=== PATIENT | female | born 1985 | race Caucasian/White ===

== ENCOUNTER 2019-04-14 07:50 | Observation (INO) | payer OTHER ==
[~2019-04-14] VITALS: Ht 157.5 cm; Wt 74.6 kg
[~2019-04-14 07:50] MED LIST: ACET1TAB12 PO; DSS100 PO; FERR325C PO; IBUP-2070 PO; PREN1TAB26 PO
[2019-04-14] MEDS ORDERED: ESCI10TA PO (08:33)
[2019-04-14 08:59] VITALS: BP 113/81
== END 2019-04-14 08:50 | disposition home or self-care (01) ==
LOC: 4S 07:50
PROVIDERS: ADMIT Obstetrics & Gynecology; ATTEND Obstetrics & Gynecology
DX: O62.9 Abnormality of forces of labor, unspecified (principal); O09.523 Supervision of elderly multigravida, third trimester; Z3A.37 37 weeks gestation of pregnancy
CPT/HCPCS: 81002; G0378

== ENCOUNTER 2019-04-14 10:09 | Inpatient (IN) | payer OTHER ==
[~2019-04-14] VITALS: Ht 154.9 cm; Wt 75.7 kg
[~2019-04-14 10:09] MED LIST changes: -ACET1TAB12 PO; -DSS100 PO; +ESCI10TA PO; -FERR325C PO; -IBUP-2070 PO
[2019-04-27] MEDS ORDERED: ALBU8HFA (04:18)
[2019-04-27 04:36] VITALS: BP 126/82
[2019-04-27] MEDS ORDERED: OXYTOCIN 30 UNITS/LACT RINGERS 500 ML IV ONE ×2 (05:56→15:21)
[2019-04-27] MEDS ORDERED: RINGERS SOLUTION,LACTATED 1,000 ML IV PRN (05:56)
[2019-04-27] MEDS ORDERED: OXYTOCIN 30 UNITS/LACT RINGERS 500 ML IV PRN (05:56)
[2019-04-27] MEDS ORDERED: FentaNYL CITRATE-PF 100 MCG/2 ML VIAL IVP PRN (06:00)
[2019-04-27] MEDS ORDERED: METOCLOPRAMIDE HCL 5 MG/ML 2 ML VIAL IVP PRN (06:00)
[2019-04-27] MEDS ORDERED: CITRIC ACID/SODIUM CITRATE 30 ML SOLUTION UDCUP PO PRN (06:00)
[2019-04-27] MEDS ORDERED: METH5POW14 PUFF (06:01)
[2019-04-27] MEDS ORDERED: SALMH IH (06:12)
[2019-04-27 06:21] LABS: BASOPHILS % (AUTO) 0.2 % (0.0-2.0); EOSINOPHILS % (AUTO) 1.7 % (1.0-6.0); HEMATOCRIT 34.3 % (36-46); HEMOGLOBIN 11.5 g/dL (12.0-16.0); LYMPHOCYTES # (AUTO) 1.4 K/uL (1.0-4.8); LYMPHOCYTES % (AUTO) 13.7 % (22.0-44.0); MEAN CORPUSCULAR HEMOGLOBIN 25.7 pg (26.0-34.0); MEAN CORPUSCULAR HGB CONC 33.5 G/dL (31.0-37.0); MEAN CORPUSCULAR VOLUME 77 fL (80-100); MONOCYTES # (AUTO) 0.7 K/uL (0.1-1.0); MONOCYTES % (AUTO) 6.4 % (2.0-9.0); NEUTROPHILS # (AUTO) 8.2 K/uL (1.8-7.7); PLATELET COUNT (AUTO)-OB 200 K/uL (150-450); RED BLOOD CELL COUNT(AUTO) 4.46 MIL/uL (4.00-5.20)
[2019-04-27] MEDS ORDERED: ROPIVACAINE HCL/PF 0.2% 100 ML ED ONE (07:17)
[2019-04-27] MEDS ORDERED: LIDOCAINE/PF 2% 5 ML VIAL ONE (07:17)
[2019-04-27] MEDS: RINGERS SOLUTION,LACTATED 1,000 ML IV SCH ×5 (07:46→13:54)
[2019-04-27] MEDS ORDERED: OXYGEN THERAPY IH SCH (08:00)
[2019-04-27] MEDS: ESCITALOPRAM OXALATE 10 MG TABLET PO SCH (08:57)
[2019-04-27] MEDS ORDERED: SALMETEROL XINAFOATE IH SCH (09:00)
[2019-04-27] MEDS ORDERED: NALBUPHINE HCL 10 MG/ML VIAL IVP PRN (10:00)
[2019-04-27] MEDS ORDERED: ONDANSETRON HCL 4 MG/2 ML VIAL IVP PRN (10:00)
[2019-04-27] MEDS ORDERED: ROPIVACAINE HCL/PF 0.2% 100 ML ED PRN (10:00)
[2019-04-27] MEDS ORDERED: DiphenhydrAMINE HCL 50 MG/ML VIAL IVP PRN (10:00)
[2019-04-27] MEDS ORDERED: MINERAL OIL 30 ML UDCUP VG ONE (12:45)
[2019-04-27] MEDS ORDERED: LIDOCAINE/PF 1% 30 ML VIAL INJ PRN (15:30)
[2019-04-27] MEDS ORDERED: LANOLIN 7 GM OINTMENT TP PRN (15:30)
[2019-04-27] MEDS ORDERED: GLYCERIN/WITCH HAZEL LEAF 40 PADS JAR TP PRN (15:30)
[2019-04-27] MEDS ORDERED: BENZOCAINE 20%/MENTHOL 56 GM SPRAY CANISTER TP PRN (15:30)
[2019-04-27] MEDS ORDERED: OxyCODONE HCL/ACETAMINOPHEN 5-325 MG TABLET PO PRN ×2 (15:30)
[2019-04-27] MEDS ORDERED: MAGNESIUM HYDROXIDE SUSPENSION 30 ML UDCUP PO PRN (15:30)
[2019-04-27] MEDS: IBUPROFEN 800 MG TABLET PO PRN (18:19)
[2019-04-28 05:59] LABS: BASOPHILS % (AUTO) 0.2 % (0.0-2.0); EOSINOPHILS % (AUTO) 1.4 % (1.0-6.0); HEMOGLOBIN 9.9 g/dL (12.0-16.0); LYMPHOCYTES # (AUTO) 1.8 K/uL (1.0-4.8); LYMPHOCYTES % (AUTO) 14.6 % (22.0-44.0); MEAN CORPUSCULAR HEMOGLOBIN 25.7 pg (26.0-34.0); MEAN CORPUSCULAR HGB CONC 32.9 G/dL (31.0-37.0); MEAN CORPUSCULAR VOLUME 78 fL (80-100); MONOCYTES # (AUTO) 0.7 K/uL (0.1-1.0); MONOCYTES % (AUTO) 6.2 % (2.0-9.0); NEUTROPHILS # (AUTO) 9.3 K/uL (1.8-7.7); NEUTROPHILS % (AUTO) 77.6 % (40.0-70.0); PLATELET COUNT (AUTO)-OB 184 K/uL (150-450); RED BLOOD CELL COUNT(AUTO) 3.84 MIL/uL (4.00-5.20); RED CELL DISTRIBUTION WIDTH 16.1 % (11.5-14.5)
[2019-04-28] MEDS: IBUPROFEN 800 MG TABLET PO PRN ×2 (08:43→15:21)
[2019-04-28] MEDS: ESCITALOPRAM OXALATE 10 MG TABLET PO SCH (08:43)
[2019-04-28] MEDS ORDERED: IBUP-2071 PO ×2 (10:47→10:50)
[2019-04-28] MEDS ORDERED: DSS100 PO (10:51)
[2019-04-28] MEDS ORDERED: FERR-89 PO (10:51)
== END 2019-04-28 16:35 | disposition home or self-care (01) | DRG 807 ==
LOC: OBSVTOIN 04-27 03:55 → 4S 04-27 03:55
PROVIDERS: ADMIT Obstetrics & Gynecology; ATTEND Obstetrics & Gynecology
PROC: 10E0XZZ Delivery of Products of Conception, External Approach (ICD-10-PCS; principal; 2019-04-27)
PROC: 0KQM0ZZ Repair Perineum Muscle, Open Approach (ICD-10-PCS; 2019-04-27)
PROC: 3E0R3BZ Introduction of Anesthetic Agent into Spinal Canal, Percutaneous Approach (ICD-10-PCS; 2019-04-27)
PROC: 00HU33Z Insertion of Infusion Device into Spinal Canal, Percutaneous Approach (ICD-10-PCS; 2019-04-27)
DX: O69.81X0 Labor and delivery complicated by cord around neck, without compression, not applicable or unspecified (principal); Z37.0 Single live birth; O70.1 Second degree perineal laceration during delivery; Z3A.38 38 weeks gestation of pregnancy
CPT/HCPCS: 86850; 86900; 86901; J2590; J2795; J3490; J3535; J7120